=== PATIENT | female | born 1990 | race African-American/Black ===

== ENCOUNTER 2018-11-27 22:05 | Emergency (ER) | payer MEDICAID ==
[~2018-11-27] VITALS: Ht 165.1 cm; Wt 77.3 kg
[2018-11-27 22:11] VITALS: Ht 165.1 cm; Wt 77.3 kg
[2018-11-27] MEDS ORDERED: KEFLEX500 MG PO (23:22)
[2018-11-28 00:43] VITALS: BP 108/67
== END 2018-11-28 00:43 | disposition home or self-care (01) ==
LOC: D.ER 22:05
DX: J01.90 Acute sinusitis, unspecified (principal); R09.89 Other specified symptoms and signs involving the circulatory and respiratory systems

== ENCOUNTER 2019-01-22 17:44 | Emergency (ER) | payer MEDICAID ==
[~2019-01-22] VITALS: Ht 165.1 cm; Wt 74.5 kg
[~2019-01-22 17:44] MED LIST: KEFLEX500 MG PO
[2019-01-22 18:02] VITALS: Ht 165.1 cm; Wt 74.5 kg
[2019-01-22 18:34] LABS: HCG URINE NEGATIVE (NEGATIVE)
[2019-01-22 18:43] LABS: APPEARANCE CLEAR (CLEAR); BILIRUBIN NEGATIVE (NEGATIVE); COLOR YELLOW (YELLOW); EPITHELIAL CELLS 0-5 /hpf (0-5); GLUCOSE NEGATIVE (NEGATIVE); KETONE NEGATIVE (NEGATIVE); NITRITE NEGATIVE (NEGATIVE); PROTEIN NEGATIVE (NEGATIVE); RED CELLS - URINE 0-5 /hpf (0-5); UROBILINOGEN NORMAL (NORMAL)
[2019-01-22 18:48] LABS: BASOPHILS 0.2 % (0-2); EOSINOPHILS 2.7 % (0-7); HEMATOCRIT 31.8 % (36.0-48.0); HEMOGLOBIN 10.3 g/dL (12-16); IMMATURE GRANULOCYTES 0.2 % (0-5); LYMPHOCYTES 39.5 % (15-50); MCH 24.8 pg (26.0-34.0); MCHC 32.4 g/dL (31.0-37.0); MCV 76.6 fL (80.0-100.0); MONOCYTES 6.5 % (2-11); NEUTROPHILS 50.9 % (40-80); PLATELET COUNT 295 10x3/uL (130-400); RBC 4.15 10x6/uL (4.00-5.40); RDW 15.6 % (11.5-14.5); WBC 5.3 10x3/uL (4.8-10.8)
[2019-01-22 19:02] LABS: ALBUMIN 3.5 g/dL (3.4-5.0); ALKALINE PHOSPHATASE 53 U/L (46-116); ALT (SGPT) 20 U/L (10-68); BILIRUBIN - TOTAL 0.18 mg/dL (0.2-1.3); CALC OSMOLALITY 277 mosm/kg (275-300); CALCIUM 8.9 mg/dL (8.5-10.1); CARBON DIOXIDE 27.5 mmol/L (21.0-32.0); CHLORIDE - SERUM 106 mmol/L (98-107); CREATININE - SERUM 0.8 mg/dL (0.6-1.3); GLUCOSE 79 mg/dL (74-106); POTASSIUM - SERUM 3.7 mmol/L (3.5-5.1); PROTEIN - SERUM 7.8 g/dL (6.4-8.2); SODIUM 140 mmol/L (136-145); UREA NITROGEN 12 mg/dL (7-18); eGFR NON AFRICAN AMERICAN > 90 mL/min (90-120)
[2019-01-22 19:10] LABS: THYROID STIMULATING HORMONE 1.42 uIU/mL (0.36-3.74)
[2019-01-22] MEDS ORDERED: MACROBID100 MG PO (20:29)
[2019-01-22 20:42] VITALS: BP 122/79
== END 2019-01-22 20:42 | disposition home or self-care (01) ==
LOC: D.ER 17:44
PROVIDERS: Emergency Medicine
DX: N39.0 Urinary tract infection, site not specified (principal); D64.9 Anemia, unspecified

== ENCOUNTER 2019-03-12 09:46 | Emergency (ER) | payer MEDICAID ==
[~2019-03-12] VITALS: Ht 165.1 cm; Wt 75.0 kg
[~2019-03-12 09:46] MED LIST changes: +MACROBID100 MG PO
[2019-03-12 09:56] VITALS: Ht 165.1 cm; Wt 75.0 kg
[2019-03-12 10:22] LABS: APPEARANCE CLEAR (CLEAR); BILIRUBIN NEGATIVE (NEGATIVE); COLOR YELLOW (YELLOW); GLUCOSE NEGATIVE (NEGATIVE); KETONE NEGATIVE (NEGATIVE); NITRITE NEGATIVE (NEGATIVE); PROTEIN NEGATIVE (NEGATIVE); SPECIFIC GRAVITY 1.025 (1.005-1.020); UROBILINOGEN NORMAL (NORMAL)
[2019-03-12 10:24] LABS: BASOPHILS 0.3 % (0-2); EOSINOPHILS 4.7 % (0-7); HEMATOCRIT 36.9 % (36.0-48.0); HEMOGLOBIN 12.1 g/dL (12-16); LYMPHOCYTES 43.2 % (15-50); MCH 25.3 pg (26.0-34.0); MCHC 32.8 g/dL (31.0-37.0); MCV 77.2 fL (80.0-100.0); MEAN PLATELET VOLUME 8.9 fL (7.4-10.4); NEUTROPHILS 41.8 % (40-80); PLATELET COUNT 249 10x3/uL (130-400); RBC 4.78 10x6/uL (4.00-5.40); RDW 17.4 % (11.5-14.5); WBC 3.6 10x3/uL (4.8-10.8)
[2019-03-12 10:34] LABS: ALBUMIN 3.7 g/dL (3.4-5.0); ALKALINE PHOSPHATASE 46 U/L (46-116); ALT (SGPT) 19 U/L (10-68); AMYLASE - SERUM 60 U/L (25-115); BILIRUBIN - TOTAL 0.32 mg/dL (0.2-1.3); CALC OSMOLALITY 276 mosm/kg (275-300); CALCIUM 8.7 mg/dL (8.5-10.1); CARBON DIOXIDE 28.6 mmol/L (21.0-32.0); CHLORIDE - SERUM 104 mmol/L (98-107); CREATININE - SERUM 0.8 mg/dL (0.6-1.3); GLUCOSE 84 mg/dL (74-106); LIPASE 57 U/L (73-393); POTASSIUM - SERUM 3.5 mmol/L (3.5-5.1); PROTEIN - SERUM 7.8 g/dL (6.4-8.2); SODIUM 140 mmol/L (136-145); UREA NITROGEN 10 mg/dL (7-18); eGFR NON AFRICAN AMERICAN > 90 mL/min (90-120)
[2019-03-12 11:13] LABS: HCG URINE NEGATIVE (NEGATIVE)
[2019-03-12 11:24] VITALS: BP 128/67
== END 2019-03-12 11:36 | disposition home or self-care (01) ==
LOC: D.ER 09:46
PROVIDERS: Emergency Medicine
DX: N93.8 Other specified abnormal uterine and vaginal bleeding (principal)

== ENCOUNTER 2019-07-09 14:43 | Emergency (ER) | payer MEDICAID ==
[~2019-07-09] VITALS: Ht 165.1 cm; Wt 79.1 kg
[2019-07-09 14:48] VITALS: Ht 165.1 cm; Wt 79.1 kg
[2019-07-09] MEDS ORDERED: ZPAK PO (15:43)
[2019-07-09] MEDS ORDERED: FLUTICASONE PRO16 GM NASAL (15:43)
[2019-07-09 15:48] VITALS: BP 118/72
== END 2019-07-09 15:49 | disposition home or self-care (01) ==
LOC: D.ER 14:43
DX: J32.9 Chronic sinusitis, unspecified (principal)

== ENCOUNTER 2019-09-30 16:59 | Emergency (ER) | payer MEDICAID ==
[~2019-09-30] VITALS: Ht 165.1 cm; Wt 78.6 kg
[~2019-09-30 16:59] MED LIST changes: +FLUTICASONE PRO16 GM NASAL; +ZPAK PO
[2019-09-30 17:04] VITALS: Ht 165.1 cm; Wt 78.6 kg
[2019-09-30 17:59] LABS: APPEARANCE CLEAR (CLEAR); BILIRUBIN NEGATIVE (NEGATIVE); COLOR YELLOW (YELLOW); GLUCOSE NEGATIVE (NEGATIVE); KETONE NEGATIVE (NEGATIVE); NITRITE NEGATIVE (NEGATIVE); PROTEIN NEGATIVE (NEGATIVE); SPECIFIC GRAVITY 1.025 (1.005-1.020); UROBILINOGEN NORMAL (NORMAL)
[2019-09-30 18:00] LABS: HCG URINE NEGATIVE (NEGATIVE)
[2019-09-30 20:35] VITALS: BP 111/67
== END 2019-09-30 20:05 | disposition home or self-care (01) ==
LOC: D.ER 16:59
PROVIDERS: Family Medicine
DX: R55 Syncope and collapse (principal)